=== PATIENT | male | born 1950 | race Two or more races ===

== ENCOUNTER 2020-08-16 06:43 | Inpatient (IN) | payer OTHER ==
[~2020-08-16] VITALS: Ht 175.3 cm; Wt 90.5 kg
[2020-08-16] MEDS ORDERED: cefTRIAXone 1GM/50ML D5W 50 ML IV ONE (08:00)
[2020-08-16] MEDS ORDERED: DexAMETHasone SOD PHOS 10MG/1ML VIAL INJ IV ONE (08:00)
[2020-08-16] MEDS ORDERED: AZITHROMYCIN 500MG/ 250ML 250 ML IV ONE (08:00)
[2020-08-16] MEDS ORDERED: IBUP600T27 PO (08:09)
[2020-08-16] MEDS ORDERED: GEMF-19 PO (08:09)
[2020-08-16] MEDS ORDERED: CARV6.2551 PO (08:09)
[2020-08-16 08:14] LABS: Basophils # (auto) 0 10 ^3/uL (0-0.2); Basophils % (auto) 0.2 % (0.0-2.0); Eosinophils # (auto) 0.1 10 ^3/uL (0-0.8); Eosinophils % (auto) 0.6 % (0.0-7.0); Hematocrit 35.8 % (41.0-53.0); Hemoglobin 12.3 g/dL (13.5-17.5); Lymphocytes # (auto) 0.8 10 ^3/uL (0.4-5.4); Lymphocytes % (auto) 10.2 % (10.0-50.0); Mean Corpuscular Hemoglobin 32.7 pg (28.0-32.0); Mean Corpuscular Hgb Conc. 34.3 g/dL (32.0-36.0); Mean Corpuscular Volume 95.4 fL (80.0-100.0); Monocytes # (auto) 0.8 10 ^3/uL (0-1.3); Monocytes % (auto) 9.5 % (0.0-12.0); Neutrophils # (auto) 6.4 10 ^3/uL (1.6-8.6); Neutrophils % (auto) 79.5 % (37.0-80.0); Nucleated Red Blood Cells % 0.1 %; Red Blood Cells 3.75 10^6/uL (4.5-5.90); Red Cell Distribution Width 12.6 % (11.8-14.3); White Blood Cell 8.1 10^3/uL (4.4-10.8)
[2020-08-16] MEDS ORDERED: GLIM2TAB33 PO (08:16)
[2020-08-16] MEDS ORDERED: METF-370 PO (08:16)
[2020-08-16] MEDS ORDERED: CLOP75TA28 PO (08:16)
[2020-08-16] MEDS ORDERED: ASPI-543 PO (08:16)
[2020-08-16] MEDS ORDERED: LOSA-69 PO (08:16)
[2020-08-16] MEDS ORDERED: ATOR80TA PO (08:16)
[2020-08-16 08:28] LABS: Alanine Aminotransferase 34 U/L (16-61); Anion Gap 10 (5-15); Aspartate Aminotransferase 50 U/L (15-37); BUN/Creatinine Ratio 18.9; Blood Urea Nitrogen 43 mg/dL (7-18); Calcium 8.3 mg/dL (8.5-10.1); Carbon Dioxide 21 mmol/L (21-32); Chloride 102 mmol/L (98-107); GFR African American 37 mL/min; GFR Non-African American 31 mL/min; Glucose 208 mg/dL (74-106); Magnesium 2.8 mg/dL (1.6-2.6); Potassium 4.1 mmol/L (3.5-5.1); Sodium 133 mmol/L (136-145)
[2020-08-16 08:33] LABS: Alkaline Phosphatase 129 U/L (45-117); Bilirubin, Total 1.8 mg/dL (0.2-1.0); Total Protein 7.3 g/dL (6.4-8.2)
[2020-08-16 08:46] LABS: INR 1.04 (0.9-1.15); Partial Thromboplastin Time 23.4 sec (23.0-31.2)
[2020-08-16 09:52] LABS: Lactate Dehydrogenase 348 U/L (87-241)
[2020-08-16 09:59] LABS: CRP High Sensitivity > 19.0 mg/dL (< 0.3)
[2020-08-16] MEDS ORDERED: REMDESIVIR PER PHARMACY 0 ML IV SCH (13:00)
[2020-08-16] MEDS ORDERED: MORPHINE SULFATE INJECTION 2 MG/ML SYRG IV PRN ×2 (13:00)
[2020-08-16] MEDS ORDERED: HYDROcodone-ACET 5/325MG TAB PO PRN (13:00)
[2020-08-16] MEDS ORDERED: NITROGLYCERIN 0.4 MG SL TAB SL PRN (13:00)
[2020-08-16] MEDS ORDERED: guaiFENesin-CODEINE Liq 5 ML UD PO PRN (13:00)
[2020-08-16] MEDS ORDERED: DEXTROSE (50%) 50ML SYRG IV PRN (13:00)
[2020-08-16] MEDS ORDERED: ONDANSETRON HCL 4 MG/2 ML VIAL IV PRN (13:00)
[2020-08-16] MEDS ORDERED: ACETAMINOPHEN 500 MG TAB PO PRN (13:00)
[2020-08-16] MEDS ORDERED: EMPA1TAB PO (16:34)
[2020-08-16] MEDS ORDERED: OXYC325T14 PO (16:34)
[2020-08-16] MEDS ORDERED: GABA100C9 PO (16:34)
[2020-08-16] MEDS ORDERED: METF-372 PO (16:34)
[2020-08-16] MEDS ORDERED: MULT-940 PO (16:39)
[2020-08-16] MEDS: ACCU-CHEK COMFORT CURVE STRIP VI SCH ×2 (17:19→22:56)
[2020-08-16] MEDS: InsuLIN REG 1unit/0.01ml Soln (100units/ml) SC SCH ×2 (17:19→22:57)
[2020-08-16 19:51] VITALS: BP 125/62
[2020-08-16 20:20] VITALS: BP 121/58
[2020-08-16 21:50] VITALS: BP 123/65
[2020-08-16] MEDS: BUDESONIDE (INHALATION) 180 MCG IH IN SCH (22:00)
[2020-08-16] MEDS: ENOXAPARIN SOD 40 MG/0.4 ML SYRINGE SC SCH (22:30)
[2020-08-17] VITALS: BP 123/65
[2020-08-17 00:38] VITALS: BP 123/65
[2020-08-17] MEDS ORDERED: DAPA1TAB4 PO (01:04)
[2020-08-17] MEDS: ACCU-CHEK COMFORT CURVE STRIP VI SCH ×4 (06:52→22:33)
[2020-08-17] MEDS: InsuLIN REG 1unit/0.01ml Soln (100units/ml) SC SCH ×4 (06:53→22:32)
[2020-08-17 08:00] VITALS: BP 117/50
[2020-08-17] MEDS: cefTRIAXone 1GM/50ML D5W 50 ML IV SCH (08:52)
[2020-08-17] MEDS: AZITHROMYCIN 500MG/ 250ML 250 ML IV SCH (09:57)
[2020-08-17] MEDS: DexAMETHasone SOD PHOS 10MG/1ML VIAL INJ IV SCH (09:57)
[2020-08-17] MEDS: ZINC SULFATE 220mg CAP or TAB PO SCH (09:57)
[2020-08-17] MEDS: ASCORBIC ACID 1,000 MG TAB PO SCH (09:58)
[2020-08-17] MEDS: CHOLECALCIFEROL (VITD3) 2,000 UNIT CAP/TAB PO SCH (09:58)
[2020-08-17] MEDS ORDERED: IVERMECTIN 3 MG TAB PO ONE (10:00)
[2020-08-17] MEDS: BUDESONIDE (INHALATION) 180 MCG IH IN SCH ×2 (10:20→19:17)
[2020-08-17] MEDS: ENOXAPARIN SOD 40 MG/0.4 ML SYRINGE SC SCH ×2 (11:30→22:33)
[2020-08-17] MEDS ORDERED: ASPirin 81 mg TAB PO ONE (12:30)
[2020-08-17] MEDS ORDERED: GLIMEPIRIDE 2 MG TAB PO ONE (12:30)
[2020-08-17] MEDS ORDERED: CLOPIDOGREL BISULFATE 75 MG TAB PO ONE (12:30)
[2020-08-17] MEDS ORDERED: DEXTROSE (50%) 50ML SYRG IV PRN (12:30)
[2020-08-17] MEDS: SODIUM CHLORIDE 0.9% 1,000 ML IV SCH (12:54)
[2020-08-17] MEDS: GABAPENTIN 100 MG CAP PO SCH ×2 (14:02→22:34)
[2020-08-17] MEDS: ALBUTEROL SULF HFA 90MCG INH 200DOSE IN PRN ×2 (15:02→19:17)
[2020-08-17 16:00] VITALS: BP_SYST 113; BP_SYST 127; BP_DIAS 66; BP_DIAS 82
[2020-08-17] MEDS ORDERED: REMDESIVIR 200 MG in NS 210ml LOADING DOSE ADULT IV ONE (17:00)
[2020-08-17] MEDS: ATORVASTATIN 20 MG TAB PO SCH (22:34)
[2020-08-18] VITALS: BP 131/79
[2020-08-18] MEDS: SODIUM CHLORIDE 0.9% 1,000 ML IV SCH (06:14)
[2020-08-18] MEDS: ACCU-CHEK COMFORT CURVE STRIP VI SCH ×4 (06:15→21:20)
[2020-08-18 06:31] LABS: Basophils # (auto) 0 10 ^3/uL (0-0.2); Basophils % (auto) 0.1 % (0.0-2.0); Eosinophils # (auto) 0 10 ^3/uL (0-0.8); Hemoglobin 12.2 g/dL (13.5-17.5); Lymphocytes # (auto) 0.4 10 ^3/uL (0.4-5.4); Lymphocytes % (auto) 4.9 % (10.0-50.0); Mean Corpuscular Hemoglobin 33.5 pg (28.0-32.0); Mean Corpuscular Volume 95.7 fL (80.0-100.0); Monocytes # (auto) 0.7 10 ^3/uL (0-1.3); Neutrophils # (auto) 7.8 10 ^3/uL (1.6-8.6); Red Blood Cells 3.65 10^6/uL (4.5-5.90); Red Cell Distribution Width 12.6 % (11.8-14.3)
[2020-08-18] MEDS: GLIMEPIRIDE 2 MG TAB PO SCH ×2 (06:35→21:58)
[2020-08-18] MEDS: InsuLIN REG 1unit/0.01ml Soln (100units/ml) SC SCH ×4 (06:35→22:03)
[2020-08-18] MEDS: GABAPENTIN 100 MG CAP PO SCH ×3 (06:35→22:02)
[2020-08-18 06:47] LABS: Albumin 1.9 g/dL (3.4-5.0); BUN/Creatinine Ratio 34.6; Bilirubin, Total 0.8 mg/dL (0.2-1.0); Calcium 8.2 mg/dL (8.5-10.1); Total Protein 7.1 g/dL (6.4-8.2)
[2020-08-18] MEDS: ALBUTEROL SULF HFA 90MCG INH 200DOSE IN PRN ×2 (07:10→19:27)
[2020-08-18] MEDS: BUDESONIDE (INHALATION) 180 MCG IH IN SCH ×2 (07:10→19:27)
[2020-08-18 08:00] VITALS: BP 133/79
[2020-08-18] MEDS: cefTRIAXone 1GM/50ML D5W 50 ML IV SCH (09:25)
[2020-08-18] MEDS: AZITHROMYCIN 500MG/ 250ML 250 ML IV SCH (09:25)
[2020-08-18] MEDS: ASPirin 81 mg TAB PO SCH (09:26)
[2020-08-18] MEDS: CLOPIDOGREL BISULFATE 75 MG TAB PO SCH (09:26)
[2020-08-18] MEDS: ZINC SULFATE 220mg CAP or TAB PO SCH (09:26)
[2020-08-18] MEDS: CHOLECALCIFEROL (VITD3) 2,000 UNIT CAP/TAB PO SCH (09:26)
[2020-08-18] MEDS: ENOXAPARIN SOD 40 MG/0.4 ML SYRINGE SC SCH ×2 (09:26→21:59)
[2020-08-18] MEDS: ASCORBIC ACID 1,000 MG TAB PO SCH (09:26)
[2020-08-18] MEDS: DexAMETHasone SOD PHOS 10MG/1ML VIAL INJ IV SCH (09:27)
[2020-08-18] MEDS: REMDESIVIR 100mg 100 MG in SODIUM CHL 0.9% 230 ML IV SCH (15:44)
[2020-08-18 16:00] VITALS: BP 124/68
[2020-08-18] MEDS: ATORVASTATIN 20 MG TAB PO SCH (21:56)
[2020-08-19] VITALS: BP 119/89
[2020-08-19] MEDS: SODIUM CHLORIDE 0.9% 1,000 ML IV SCH (05:08)
[2020-08-19] MEDS: ACCU-CHEK COMFORT CURVE STRIP VI SCH ×4 (06:09→22:11)
[2020-08-19] MEDS: BUDESONIDE (INHALATION) 180 MCG IH IN SCH ×2 (07:06→20:20)
[2020-08-19 08:00] VITALS: BP 143/73
[2020-08-19 08:09] LABS: Albumin 2.2 g/dL (3.4-5.0); Calcium 8.7 mg/dL (8.5-10.1); Potassium 4.9 mmol/L (3.5-5.1)
[2020-08-19 08:15] LABS: BUN/Creatinine Ratio 35.5; Bilirubin, Total 0.7 mg/dL (0.2-1.0); Total Protein 7.6 g/dL (6.4-8.2)
[2020-08-19] MEDS: ENOXAPARIN SOD 40 MG/0.4 ML SYRINGE SC SCH ×2 (10:19→22:11)
[2020-08-19] MEDS: cefTRIAXone 1GM/50ML D5W 50 ML IV SCH (10:19)
[2020-08-19] MEDS: AZITHROMYCIN 500MG/ 250ML 250 ML IV SCH (10:19)
[2020-08-19] MEDS: DexAMETHasone SOD PHOS 10MG/1ML VIAL INJ IV SCH (10:19)
[2020-08-19] MEDS: ASPirin 81 mg TAB PO SCH (10:20)
[2020-08-19] MEDS: ASCORBIC ACID 1,000 MG TAB PO SCH (10:20)
[2020-08-19] MEDS: CLOPIDOGREL BISULFATE 75 MG TAB PO SCH (10:20)
[2020-08-19] MEDS: CHOLECALCIFEROL (VITD3) 2,000 UNIT CAP/TAB PO SCH (10:20)
[2020-08-19] MEDS: ZINC SULFATE 220mg CAP or TAB PO SCH (10:20)
[2020-08-19] MEDS: InsuLIN REG 1unit/0.01ml Soln (100units/ml) SC SCH ×3 (11:30→21:59)
[2020-08-19] MEDS: GABAPENTIN 100 MG CAP PO SCH ×2 (12:19→22:10)
[2020-08-19] MEDS: REMDESIVIR 100mg 100 MG in SODIUM CHL 0.9% 230 ML IV SCH (15:10)
[2020-08-19 16:00] VITALS: BP 142/73
[2020-08-19] MEDS: ALBUTEROL SULF HFA 90MCG INH 200DOSE IN PRN (21:09)
[2020-08-19] MEDS: ATORVASTATIN 20 MG TAB PO SCH (22:10)
[2020-08-19] MEDS: DOXYCYCLINE 100 MG TAB/CAP PO SCH (22:11)
[2020-08-20] VITALS: BP 124/64
[2020-08-20] MEDS: ACCU-CHEK COMFORT CURVE STRIP VI SCH ×2 (06:31→12:32)
[2020-08-20] MEDS: InsuLIN REG 1unit/0.01ml Soln (100units/ml) SC SCH ×2 (06:32→11:30)
[2020-08-20] MEDS: GABAPENTIN 100 MG CAP PO SCH ×2 (06:32→14:41)
[2020-08-20] MEDS: GLIMEPIRIDE 2 MG TAB PO SCH (06:33)
[2020-08-20 07:04] LABS: Hematocrit 37.9 % (41.0-53.0); Hemoglobin 13.1 g/dL (13.5-17.5); Mean Corpuscular Hemoglobin 33.3 pg (28.0-32.0); Mean Corpuscular Hgb Conc. 34.6 g/dL (32.0-36.0); Mean Corpuscular Volume 96.3 fL (80.0-100.0); Red Blood Cells 3.94 10^6/uL (4.5-5.90); Red Cell Distribution Width 12.4 % (11.8-14.3); White Blood Cell 6.4 10^3/uL (4.4-10.8)
[2020-08-20 07:05] LABS: Albumin 2.1 g/dL (3.4-5.0); Calcium 8.6 mg/dL (8.5-10.1); Potassium 4.4 mmol/L (3.5-5.1)
[2020-08-20] MEDS: BUDESONIDE (INHALATION) 180 MCG IH IN SCH (07:06)
[2020-08-20] MEDS: ALBUTEROL SULF HFA 90MCG INH 200DOSE IN PRN (07:06)
[2020-08-20 07:08] LABS: BUN/Creatinine Ratio 31.8; Bilirubin, Total 0.6 mg/dL (0.2-1.0)
[2020-08-20 07:23] LABS: Basophils % (manual) 0 (0.0-2.0); Blast Cells 0; Myelocytes % 0; Promyelocytes % 0; Reactive Lymphocytes 0
[2020-08-20 08:11] LABS: Band Neutrophils % (manual) 2; Eosinophils % (manual) 2 (0-7); Lymphocytes % (manual) 17 (10.0-50.0); Metamyelocytes % 2; Monocytes % (manual) 9 (0-12)
[2020-08-20 08:16] VITALS: BP 145/72
[2020-08-20] MEDS ORDERED: DexAMETHasone 4 MG TAB PO SCH (10:00)
[2020-08-20] MEDS: ASPirin 81 mg TAB PO SCH (10:25)
[2020-08-20] MEDS: ENOXAPARIN SOD 40 MG/0.4 ML SYRINGE SC SCH (10:25)
[2020-08-20] MEDS: ZINC SULFATE 220mg CAP or TAB PO SCH (10:25)
[2020-08-20] MEDS: ASCORBIC ACID 1,000 MG TAB PO SCH (10:25)
[2020-08-20] MEDS: CLOPIDOGREL BISULFATE 75 MG TAB PO SCH (10:25)
[2020-08-20] MEDS: DOXYCYCLINE 100 MG TAB/CAP PO SCH (10:27)
[2020-08-20] MEDS: CHOLECALCIFEROL (VITD3) 2,000 UNIT CAP/TAB PO SCH (10:27)
[2020-08-20] MEDS: REMDESIVIR 100mg 100 MG in SODIUM CHL 0.9% 230 ML IV SCH (15:31)
[2020-08-20 16:02] VITALS: BP 151/77
== END 2020-08-20 17:00 | disposition home or self-care (01) | DRG 871 ==
LOC: ER 06:43 → EDBD 06:43 → TELE 06:44 → TELE-WESTW 21:19 → TELE-EAST 21:45 → TELE-WESTW 08-17 11:18
PROVIDERS: ADMIT Nurse Practitioner Acute Care; ATTEND Internal Medicine
PROC: XW13325 Transfusion of Convalescent Plasma (Nonautologous) into Peripheral Vein, Percutaneous Approach, New Technology Group 5 (ICD-10-PCS; principal; 2020-08-16)
PROC: XW033E5 Introduction of Remdesivir Anti-infective into Peripheral Vein, Percutaneous Approach, New Technology Group 5 (ICD-10-PCS; 2020-08-17)
DX: A41.89 Other specified sepsis (principal); U07.1 COVID-19; J12.82 Pneumonia due to coronavirus disease 2019; J96.01 Acute respiratory failure with hypoxia; N17.0 Acute kidney failure with tubular necrosis; I44.2 Atrioventricular block, complete; D89.839 Cytokine release syndrome, grade unspecified; I25.10 Atherosclerotic heart disease of native coronary artery without angina pectoris; E66.9 Obesity, unspecified; E88.09 Other disorders of plasma-protein metabolism, not elsewhere classified; E78.5 Hyperlipidemia, unspecified; I10 Essential (primary) hypertension; E11.51 Type 2 diabetes mellitus with diabetic peripheral angiopathy without gangrene; Z79.02 Long term (current) use of antithrombotics/antiplatelets; Z79.4 Long term (current) use of insulin; Z79.899 Other long term (current) drug therapy; Z80.3 Family history of malignant neoplasm of breast; Z82.49 Family history of ischemic heart disease and other diseases of the circulatory system; Z95.5 Presence of coronary angioplasty implant and graft; Z83.3 Family history of diabetes mellitus; Z68.28 Body mass index [BMI] 28.0-28.9, adult
CPT/HCPCS: 36415; 71045; 80053; 82306; 82728; 82962; 83036; 83615; 83735; 83880; 84484; 85007; 85025; 85027; 85379; 85610; 85730; 86141; 86850; 86900; 86901; 87040; 87426; 87804; 93005; 93306; 93970; 94640; 96365; 96366; 96368; 96375; 99291; G0378; J0696; J1100; J1815

== ENCOUNTER 2022-09-10 19:04 | Inpatient (IN) | payer OTHER ==
[~2022-09-10] VITALS: Ht 177.8 cm; Wt 93.8 kg
[~2022-09-10 19:04] MED LIST: ATOR80TA PO; CARV6.2551 PO; CLOP75TA28 PO; DAPA1TAB4 PO; GABA100C9 PO; GEMF-19 PO; GLIM2TAB33 PO; METF-372 PO; OXYC325T14 PO
[2022-09-10 20:55] LABS: Basophils # (auto) 0.1 10 ^3/uL (0-0.2); Basophils % (auto) 0.7 % (0.0-2.0); Eosinophils # (auto) 0.2 10 ^3/uL (0-0.8); Eosinophils % (auto) 2.4 % (0.0-7.0); Hematocrit 42.3 % (41.0-53.0); Hemoglobin 14.8 g/dL (13.5-17.5); Lymphocytes # (auto) 1.6 10 ^3/uL (0.4-5.4); Lymphocytes % (auto) 23.2 % (10.0-50.0); Mean Corpuscular Hemoglobin 33.6 pg (28.0-32.0); Mean Corpuscular Hgb Conc. 35.1 g/dL (32.0-36.0); Mean Corpuscular Volume 95.9 fL (80.0-100.0); Monocytes # (auto) 0.5 10 ^3/uL (0-1.3); Monocytes % (auto) 6.9 % (0.0-12.0); Neutrophils # (auto) 4.7 10 ^3/uL (1.6-8.6); Neutrophils % (auto) 66.8 % (37.0-80.0); Nucleated Red Blood Cells % 0.1 %; Red Blood Cells 4.41 10^6/uL (4.5-5.90); Red Cell Distribution Width 13.6 % (11.8-14.3)
[2022-09-10 21:16] LABS: INR 0.97 (0.9-1.15); Partial Thromboplastin Time 25.2 sec (24.6-33.4)
[2022-09-10 21:22] LABS: Albumin 3.5 g/dL (3.4-5.0); BUN/Creatinine Ratio 17.9; Calcium 9.3 mg/dL (8.5-10.1); Magnesium 2.2 mg/dL (1.6-2.6); Potassium 3.9 mmol/L (3.5-5.1)
[2022-09-10 21:28] LABS: Bilirubin, Total 0.5 mg/dL (0.2-1.0); Total Protein 7.5 g/dL (6.4-8.2)
[2022-09-10] MEDS ORDERED: CLOPIDOGREL BISULFATE 75 MG TAB PO ONE (22:45)
[2022-09-10] MEDS ORDERED: HEPARIN DRIP/D5W 100UNITS/ML 250 ML IV SCH (22:45)
[2022-09-10] MEDS ORDERED: ASPirin-EC 325mg tab PO ONE (22:45)
[2022-09-10] MEDS ORDERED: HEPARIN SODIUM (PORCINE) 5000 UNITS/ML 1ML VIAL IV ONE (22:45)
[2022-09-10] MEDS ORDERED: ATORVASTATIN 20 MG TAB PO ONE (22:45)
[2022-09-10] MEDS ORDERED: METOPROLOL TARTRATE 1MG/1ML-5ML VIAL IV ONE (23:15)
[2022-09-10 23:55] LABS: Basophils # (auto) 0 10 ^3/uL (0-0.2); Basophils % (auto) 0.5 % (0.0-2.0); Eosinophils # (auto) 0.2 10 ^3/uL (0-0.8); Eosinophils % (auto) 2.7 % (0.0-7.0); Hemoglobin 13.9 g/dL (13.5-17.5); Lymphocytes # (auto) 1.8 10 ^3/uL (0.4-5.4); Mean Corpuscular Hemoglobin 33.5 pg (28.0-32.0); Mean Corpuscular Hgb Conc. 34.8 g/dL (32.0-36.0); Mean Corpuscular Volume 96.2 fL (80.0-100.0); Monocytes # (auto) 0.7 10 ^3/uL (0-1.3); Monocytes % (auto) 10.1 % (0.0-12.0); Neutrophils # (auto) 3.9 10 ^3/uL (1.6-8.6); Neutrophils % (auto) 59.7 % (37.0-80.0); Nucleated Red Blood Cells % 0.1 %; Red Blood Cells 4.15 10^6/uL (4.5-5.90); Red Cell Distribution Width 13.5 % (11.8-14.3); White Blood Cell 6.6 10^3/uL (4.4-10.8)
[2022-09-11 00:04] LABS: INR 0.98 (0.9-1.15)
[2022-09-11] MEDS ORDERED: NITROGLYCERIN 0.4 MG SL TAB SL PRN (02:00)
[2022-09-11] MEDS ORDERED: MORPHINE SULFATE INJ 2 MG/ml SYRG IV PRN (02:00)
[2022-09-11 06:15] LABS: Basophils # (auto) 0 10 ^3/uL (0-0.2); Basophils % (auto) 0.5 % (0.0-2.0); Eosinophils # (auto) 0.2 10 ^3/uL (0-0.8); Eosinophils % (auto) 3.2 % (0.0-7.0); Hematocrit 40.3 % (41.0-53.0); Hemoglobin 14.1 g/dL (13.5-17.5); Lymphocytes # (auto) 2.2 10 ^3/uL (0.4-5.4); Lymphocytes % (auto) 33.3 % (10.0-50.0); Mean Corpuscular Hemoglobin 33.7 pg (28.0-32.0); Mean Corpuscular Hgb Conc. 34.9 g/dL (32.0-36.0); Mean Corpuscular Volume 96.7 fL (80.0-100.0); Monocytes # (auto) 0.6 10 ^3/uL (0-1.3); Monocytes % (auto) 9.2 % (0.0-12.0); Neutrophils # (auto) 3.6 10 ^3/uL (1.6-8.6); Neutrophils % (auto) 53.8 % (37.0-80.0); Nucleated Red Blood Cells % 0.1 %; Red Blood Cells 4.17 10^6/uL (4.5-5.90); Red Cell Distribution Width 13.8 % (11.8-14.3); White Blood Cell 6.7 10^3/uL (4.4-10.8)
[2022-09-11 06:18] LABS: INR 1.01 (0.9-1.15); Partial Thromboplastin Time 53.1 sec (24.6-33.4)
[2022-09-11 06:36] LABS: Albumin 3.2 g/dL (3.4-5.0); BUN/Creatinine Ratio 19.8; Calcium 8.8 mg/dL (8.5-10.1); Potassium 4.2 mmol/L (3.5-5.1)
[2022-09-11 06:39] LABS: Bilirubin, Total 0.7 mg/dL (0.2-1.0); Total Protein 6.6 g/dL (6.4-8.2)
[2022-09-11] MEDS ORDERED: CLOPIDOGREL BISULFATE 75 MG TAB PO ONE (09:15)
[2022-09-11 09:41] LABS: Cholesterol 168 mg/dL (< 200)
[2022-09-11 09:44] LABS: HDL Cholesterol 54 mg/dL (40-59); LDL Cholesterol 100 mg/dL (< 100); Triglycerides 159 mg/dL (< 150)
[2022-09-11 10:00] LABS: Partial Thromboplastin Time 44.1 sec (24.6-33.4)
[2022-09-11] MEDS: ASPirin 81 mg TAB PO SCH (12:38)
[2022-09-11] MEDS ORDERED: DEXTROSE (50%) 50ML SYRG IV PRN (12:45)
[2022-09-11 13:24] LABS: INR 0.98 (0.9-1.15); Partial Thromboplastin Time 39.7 sec (24.6-33.4)
[2022-09-11] MEDS: HEPARIN DRIP/D5W 100UNITS/ML 250 ML IV SCH (14:15)
[2022-09-11] MEDS: GABAPENTIN 100 MG CAP PO SCH ×2 (14:37→22:16)
[2022-09-11] MEDS: HYDROcodone-ACET 10/325MG TAB PO PRN ×2 (15:09→22:15)
[2022-09-11] MEDS: ACCU-CHEK COMFORT CURVE STRIP VI SCH ×2 (17:37→22:07)
[2022-09-11] MEDS: InsuLIN REG 1unit/0.01ml Soln (100units/ml) SC SCH ×2 (17:40→22:18)
[2022-09-11 20:52] LABS: INR 0.99 (0.9-1.15); Partial Thromboplastin Time 50.7 sec (24.6-33.4)
[2022-09-11] MEDS ORDERED: CARVEDILOL 3.125 MG TAB PO SCH (22:00)
[2022-09-11] MEDS ORDERED: ATORVASTATIN 20 MG TAB PO SCH (22:00)
[2022-09-11] MEDS: GEMFIBROZIL 600 MG TAB PO SCH (22:21)
[2022-09-11 22:32] LABS: INR 0.99 (0.9-1.15); Partial Thromboplastin Time 52.3 sec (24.6-33.4)
[2022-09-12] VITALS (10 sets, daily range): BP systolic 125–150; BP diastolic 63–77
[2022-09-12] MEDS: HEPARIN DRIP/D5W 100UNITS/ML 250 ML IV SCH (00:20)
[2022-09-12 04:50] LABS: INR 1.03 (0.9-1.15); Partial Thromboplastin Time 60.4 sec (24.6-33.4)
[2022-09-12 05:08] LABS: Basophils # (auto) 0 10 ^3/uL (0-0.2); Basophils % (auto) 0.6 % (0.0-2.0); Eosinophils # (auto) 0.2 10 ^3/uL (0-0.8); Eosinophils % (auto) 3.9 % (0.0-7.0); Hematocrit 39.4 % (41.0-53.0); Hemoglobin 13.6 g/dL (13.5-17.5); Lymphocytes # (auto) 1.8 10 ^3/uL (0.4-5.4); Lymphocytes % (auto) 31.2 % (10.0-50.0); Mean Corpuscular Hemoglobin 33.2 pg (28.0-32.0); Mean Corpuscular Hgb Conc. 34.4 g/dL (32.0-36.0); Mean Corpuscular Volume 96.6 fL (80.0-100.0); Monocytes # (auto) 0.5 10 ^3/uL (0-1.3); Monocytes % (auto) 9.1 % (0.0-12.0); Neutrophils # (auto) 3.2 10 ^3/uL (1.6-8.6); Neutrophils % (auto) 55.2 % (37.0-80.0); Red Blood Cells 4.08 10^6/uL (4.5-5.90); Red Cell Distribution Width 13.2 % (11.8-14.3); White Blood Cell 5.7 10^3/uL (4.4-10.8)
[2022-09-12 05:20] LABS: Albumin 3.2 g/dL (3.4-5.0); Calcium 8.4 mg/dL (8.5-10.1); Potassium 3.9 mmol/L (3.5-5.1)
[2022-09-12 05:23] LABS: BUN/Creatinine Ratio 20.3; Bilirubin, Total 0.7 mg/dL (0.2-1.0); Total Protein 6.7 g/dL (6.4-8.2)
[2022-09-12 06:00] LABS: Urine WBC None Seen /hpf (0 - 3)
[2022-09-12] MEDS: GABAPENTIN 100 MG CAP PO SCH ×3 (06:00→21:56)
[2022-09-12 06:43] LABS: Urine Bacteria NONE SEEN /hpf (None Seen); Urine Blood Negative /uL (Negative); Urine Specific Gravity 1.031 (1.001-1.035)
[2022-09-12] MEDS: ACCU-CHEK COMFORT CURVE STRIP VI SCH ×3 (06:49→21:51)
[2022-09-12] MEDS: InsuLIN REG 1unit/0.01ml Soln (100units/ml) SC SCH ×3 (06:49→21:52)
[2022-09-12] MEDS ORDERED: VERAPAMIL 2.5MG/ML INJ 2ML VIAL IV ONE (11:57)
[2022-09-12] MEDS ORDERED: ANGIOMAX 250 MG VIAL IV ONE (11:57)
[2022-09-12] MEDS ORDERED: fentaNYL CITRATE 100 MCG/2 ML VL ONE (11:57)
[2022-09-12] MEDS ORDERED: MIDAZOLAM HCL 2MG/2ML 2ml VIAL (1mg/ml) ONE (11:58)
[2022-09-12] MEDS ORDERED: SODIUM CHL 0.9% 50 ML ONE (11:58)
[2022-09-12] MEDS ORDERED: HEPARIN SODIUM (PORCINE) 5000 UNITS/ML 1ML VIAL ONE (11:59)
[2022-09-12] MEDS ORDERED: IODIXANOL 320MG/ML 100ML BTL IV ONE (12:00)
[2022-09-12] MEDS ORDERED: LIDOCAINE 2%HCL (LOCAL ANESTH.) INJ 10ml MDV ONE (12:00)
[2022-09-12] MEDS ORDERED: TICAGRELOR 90 MG TAB ONE (13:00)
[2022-09-12] MEDS ORDERED: ASPirin 325 MG TAB ONE (13:02)
[2022-09-12] MEDS ORDERED: MORPHINE SULFATE INJ 2 MG/ml SYRG IV PRN (13:45)
[2022-09-12] MEDS ORDERED: NITROGLYCERIN 0.4 MG SL TAB SL PRN (13:45)
[2022-09-12 18:11] LABS: INR 1.06 (0.9-1.15); Partial Thromboplastin Time 39.9 sec (24.6-33.4)
[2022-09-12] MEDS: HYDROcodone-ACET 10/325MG TAB PO PRN ×2 (18:50→22:48)
[2022-09-12] MEDS ORDERED: HEPARIN DRIP/D5W 100UNITS/ML 250 ML IV SCH (19:30)
[2022-09-12] MEDS: GEMFIBROZIL 600 MG TAB PO SCH ×2 (21:49→21:55)
[2022-09-12] MEDS: TICAGRELOR 90 MG TAB PO SCH (21:50)
[2022-09-12] MEDS: SODIUM CHLOR 0.9% PF (SALINE LOCK) 10ML VIAL/SYR IV SCH (21:57)
[2022-09-12] MEDS ORDERED: ATORVASTATIN 20 MG TAB PO SCH (22:00)
[2022-09-13 05:00] VITALS: BP 143/69
[2022-09-13] MEDS: SODIUM CHLOR 0.9% PF (SALINE LOCK) 10ML VIAL/SYR IV SCH ×2 (06:00→14:00)
[2022-09-13] MEDS: GABAPENTIN 100 MG CAP PO SCH ×2 (06:31→14:00)
[2022-09-13] MEDS: HYDROcodone-ACET 10/325MG TAB PO PRN (06:31)
[2022-09-13] MEDS: ACCU-CHEK COMFORT CURVE STRIP VI SCH ×2 (06:34→12:31)
[2022-09-13] MEDS: InsuLIN REG 1unit/0.01ml Soln (100units/ml) SC SCH ×2 (06:34→12:30)
[2022-09-13 08:00] VITALS: BP 119/71
[2022-09-13] MEDS: PANTOPRAZOLE 40 MG TAB PO SCH ×2 (10:35→10:39)
[2022-09-13] MEDS: TICAGRELOR 90 MG TAB PO SCH (10:36)
[2022-09-13] MEDS: GEMFIBROZIL 600 MG TAB PO SCH (10:36)
[2022-09-13] MEDS: ASPirin 81 mg TAB PO SCH ×2 (10:36→10:39)
[2022-09-13] MEDS ORDERED: GEMF-19 PO (10:47)
[2022-09-13] MEDS ORDERED: TICA90TA PO (10:47)
[2022-09-13] MEDS ORDERED: ASPI-325 PO (10:47)
[2022-09-13 12:00] VITALS: BP 155/81
[2022-09-13 13:42] VITALS: BP 126/68
== END 2022-09-13 14:45 | disposition home health service (06) | DRG 246 ==
LOC: EDBD 19:04 → ER 19:06 → TELE 09-11 01:53 → TELE-EAST 09-12 08:13
PROVIDERS: ADMIT Internal Medicine; ATTEND Internal Medicine
PROC: 4A023N7 Measurement of Cardiac Sampling and Pressure, Left Heart, Percutaneous Approach (ICD-10-PCS; principal; 2022-09-12)
PROC: 027034Z Dilation of Coronary Artery, One Artery with Drug-eluting Intraluminal Device, Percutaneous Approach (ICD-10-PCS; 2022-09-12)
PROC: B2111ZZ Fluoroscopy of Multiple Coronary Arteries using Low Osmolar Contrast (ICD-10-PCS; 2022-09-12)
PROC: B2151ZZ Fluoroscopy of Left Heart using Low Osmolar Contrast (ICD-10-PCS; 2022-09-12)
DX: I21.4 Non-ST elevation (NSTEMI) myocardial infarction (principal); I50.43 Acute on chronic combined systolic (congestive) and diastolic (congestive) heart failure; E78.5 Hyperlipidemia, unspecified; E86.0 Dehydration; I10 Essential (primary) hypertension; E87.8 Other disorders of electrolyte and fluid balance, not elsewhere classified; E11.40 Type 2 diabetes mellitus with diabetic neuropathy, unspecified; E11.51 Type 2 diabetes mellitus with diabetic peripheral angiopathy without gangrene; E66.9 Obesity, unspecified; Z20.822 Contact with and (suspected) exposure to COVID-19; I25.10 Atherosclerotic heart disease of native coronary artery without angina pectoris; Z79.02 Long term (current) use of antithrombotics/antiplatelets; Z79.899 Other long term (current) drug therapy; Z68.29 Body mass index [BMI] 29.0-29.9, adult; Z95.5 Presence of coronary angioplasty implant and graft; Z82.49 Family history of ischemic heart disease and other diseases of the circulatory system; Z85.038 Personal history of other malignant neoplasm of large intestine; Z87.891 Personal history of nicotine dependence
CPT/HCPCS: 36415; 71045; 80053; 80061; 81001; 82962; 83735; 83880; 84443; 84484; 85025; 85379; 85610; 85730; 86850; 86900; 86901; 87426; 92928; 93005; 93306; 93458; 96365; 96375; 99152; 99153; 99291; C1874; G0378; J1815; J2001; J2250; Q9967